=== PATIENT | female | born 1955 | race Caucasian/White ===

== ENCOUNTER 2025-02-17 11:05 | Emergency (ER) | payer MEDICARE ==
[~2025-02-17] VITALS: Ht 160 cm; Wt 41.1 kg
[~2025-02-17 11:05] MED LIST: AZITHROMYCIN250 MG PO; FLUTICASONE-SA1 EAC1 IH; IPRAT-ALBUT 0.5-3 ML INH; METHYLPREDNISOLO4 M1 PO; NORCO 5-325 TA1 EACH PO; PREDNISONE20 MG PO; RELPAX40 MG PO; VENTOLIN HFA18 GM INH; VITAMIN D21250 MCG
[2025-02-17] MEDS ORDERED: ALBUTEROL/IPRATROPIUM 3 ML NEB INH PRN (11:15)
[2025-02-17 11:22] LABS: MCH 30.4 PG (25.6-32.2); MCHC 32.0 g/dL (32.2-35.5); MCV 95.1 fL (79.4-94.8); RBC 4.31 M/uL (3.93-5.22)
[2025-02-17] MEDS ORDERED: BUDESONIDE0.5 MG/2 M INH (11:25)
[2025-02-17] MEDS ORDERED: ARFORMOTER15 MCG/2 M INH (11:26)
[2025-02-17] MEDS ORDERED: DOXYCYCLINE HY100 MG PO (11:42)
[2025-02-17] MEDS ORDERED: METHYLPREDNISOLO4 M1 PO (11:42)
[2025-02-17] MEDS ORDERED: VENTOLIN HFA18 GM INH (11:42)
[2025-02-17] MEDS ORDERED: PREDNISONE20 MG PO (11:42)
[2025-02-17 11:45] LABS: BANDS, MANUAL DIFF 1; EOSINOPHILS, MANUAL DIFF 1; LYMPHOCYTES, MANUAL DIFF 15; MONOCYTES, MANUAL DIFF 9; NEUTROPHILS, MANUAL DIFF 74
[2025-02-17] MEDS ORDERED: DEXAMETHASONE SOD PHOS 10 MG/ML VIAL IV ONE (11:45)
[2025-02-17 11:46] LABS: ALT (SGPT) 22.0 U/L (14-59); AST (SGOT) 19.0 U/L (15-37); GLOMERULAR FILTRATION RATE,EST 106.0 mL/min (>60); PROTEIN, TOTAL 7.1 g/dL (6.4-8.2); UREA NITROGEN 10.0 mg/dL (7-18)
[2025-02-17 12:31] VITALS: BP 87/61
--- NOTE | 2025-02-17 15:49 | EKG ---
[facility] [address] [place], [place] [address] Signed Sinus rhythm with short MO Rightward axis Borderline ECG When compared with ECG of 17-OCT-2023 11:50, No significant change was found Confirmed by Madina Resendez MD ([id number]) on 02/17/2025 3:49:33 PM Electronically Signed By: MADINA RESENDEZ MD 02/17/25 1549 PATIENT NAME: CASEPRISCA Electrocardiogram DATE OF : 59 PHYSICIAN: MADINA RESENDEZ MD REPORT #: [id number] REPORT IS CONFIDENTIAL AND NOT TO BE RELEASED WITHOUT AUTHORIZATION
== END 2025-02-17 12:31 | disposition home or self-care (01) ==
LOC: ED 11:05
PROVIDERS: Emergency Medicine
DX: J44.1 Chronic obstructive pulmonary disease with (acute) exacerbation (principal); F17.200 Nicotine dependence, unspecified, uncomplicated; Z79.899 Other long term (current) drug therapy
CPT/HCPCS: 36415; 71045; 80053; 83735; 84484; 85025; 93005; 93010; 94640; 96374; 99285-25; J1100